=== PATIENT | male | born 1965 | race Two or more races ===

== ENCOUNTER 2018-02-22 17:55 | Emergency (ER) | payer SELFPAY ==
[~2018-02-22] VITALS: Ht 180.3 cm; Wt 113.0 kg
[2018-02-22 18:46] LABS: BASOPHILS # (AUTO) 0.03 x10^3/uL (0-0.1); BASOPHILS % (AUTO) 0 % (0-1); EOSINOPHILS # (AUTO) 0.17 x10^3/uL (0-0.4); EOSINOPHILS % (AUTO) 2 % (1-7); LYMPHOCYTES # (AUTO) 2.58 x10^3/uL (1-3.4); LYMPHOCYTES % (AUTO) 29 % (22-44); MD NO; MEAN CORPUSCULAR HGB CONC 34.3 g/dL (33.2-36.2); MEAN CORPUSCULAR VOLUME 87.6 fL (81-97); MEAN PLATELET VOLUME 8.6 fL (7.4-10.4); MONOCYTES # (AUTO) 0.49 x10^3/uL (0.2-0.8); MONOCYTES % (AUTO) 5 % (2-9); NEUTROPHILS # (AUTO) 5.71 x10^3/uL (1.8-6.8); NEUTROPHILS % (AUTO) 64 % (42-75); PLATELET COUNT 274 x10^3/uL (130-400); RED BLOOD COUNT 4.76 x10^6/uL (4.38-5.82)
[2018-02-22 18:58] LABS: ALBUMIN 3.6 g/dL (3.4-5.0); ANION GAP 9 mmol/L (5-15); CALCIUM 8.4 mg/dL (8.5-10.1); CHLORIDE 106 mmol/L (98-107)
[2018-02-22 19:02] LABS: ALANINE AMINOTRANSFERASE 29 U/L (12-78); ALKALINE PHOSPHATASE 90 U/L (45-117); BILIRUBIN,TOTAL 0.2 mg/dL (0.2-1.0); CREATININE 1.01 mg/dL (0.7-1.3); TOTAL PROTEIN 7.5 g/dL (6.4-8.2)
[2018-02-22 19:11] VITALS: BP 134/87
[2018-02-22 19:13] LABS: MICROSCOPIC NOT IND
== END 2018-02-22 19:51 | disposition home or self-care (01) ==
LOC: ED 19:25
DX: F41.1 Generalized anxiety disorder (principal); E11.65 Type 2 diabetes mellitus with hyperglycemia; H54.7 Unspecified visual loss; I10 Essential (primary) hypertension; Z79.84 Long term (current) use of oral hypoglycemic drugs
CPT/HCPCS: 36415; 71045; 80053; 81003; 82962; 85025; 93005; 99284

== ENCOUNTER 2018-04-26 16:51 | Emergency (ER) | payer MEDICAID ==
[~2018-04-26] VITALS: Ht 177.8 cm; Wt 107.0 kg
[2018-04-26 16:58] VITALS: BP 146/76
[2018-04-26] MEDS ORDERED: HYDROcodone/APAP 5/325 TABLET PO ONE (17:30)
--- NOTE | 2018-04-26 17:46 | NUR ---
Patient/Caregiver given discharge instructions and they have confirmed that they understand the instructions. Patient ambulatory with steady gait. Pt. has his prescription in hand.
[2018-04-26] MEDS ORDERED: HYDROcodone/APAP 5/325 TABLET ONE (18:03)
--- NOTE | 2018-04-26 18:06 | NUR ---
PT. RETURNS FOR [place]. NORCO GIVEN. BENITO ZIEGLER WITNESSED.
--- NOTE | 2018-04-26 18:15 | NUR ---
BLOOD SUGARS WERE CHECKED AND DOCUMENTED ORDERED. PT. WAS AMBULATORY TO THE DISCHARGE DESK.
== END 2018-04-26 17:51 | disposition home or self-care (01) ==
LOC: ED 17:33
DX: K04.7 Periapical abscess without sinus (principal); I10 Essential (primary) hypertension; E11.9 Type 2 diabetes mellitus without complications; F41.1 Generalized anxiety disorder; F17.200 Nicotine dependence, unspecified, uncomplicated
CPT/HCPCS: 82962; 99283